=== PATIENT | female | born 1990 | race Caucasian/White ===

== ENCOUNTER 2023-10-23 02:23 | Inpatient (IN) | payer BC, SELFPAY ==
[2023-10-23 02:50] VITALS: BP 138/86; BMI 26.6
[2023-10-23 03:12] LABS: % Basophils 0.2 % (0-2); % Eosinophils 0.2 % (0-6); % Immature Granulocytes 1.8 % (0-0.5); % Lymphocytes 8.7 % (20.5-51.1); % Monocytes 7.2 % (1.7-9.3); % Neutrophils 81.9 % (42.2-75.2); Absolute Immature Granulocytes 0.2 10^3/uL (0-0.05); Absolute Lymphocytes 1.2 10^3/uL (1.2-3.4); Absolute Neutrophils 10.8 10^3/uL (1.4-6.5); Hematocrit 34.2 % (37.0-47.0); Hemoglobin 12.3 g/dL (12.0-16.0); Mean Corpuscular Hgb 31.1 pg (27.0-31.0); Mean Corpuscular Volume 86.6 fL (81.0-99.0); Mean Platelet Volume 10.5 fL (7.4-10.4); Nucleated Red Blood Cells % 0 %; Platelet Count 189 10^3/uL (130-400); Red Blood Cell Count 3.95 10^6/uL (4.20-5.40); Red Cell Dist. Width 12.9 % (11.5-14.5); White Blood Cell Count 13.2 10^3/uL (4.8-10.8)
[2023-10-23] MEDS: LR 1000 IV ×2 (07:40→09:03)
[2023-10-23] MEDS: FENTANYL/BUPIVACAINE 100 EPIDURAL (09:15)
[2023-10-23] MEDS: SUBLIMAZE 100 MCG EPIDURAL (09:15)
[2023-10-23] MEDS: PITOCIN 30 UNITS/NSS 500 ML IV ×2 (10:00→13:30)
[2023-10-23] MEDS: MOTRIN 600 MG PO ×2 (14:29→23:34)
[2023-10-23] MEDS: TYLENOL 650 MG PO (23:36)
[2023-10-24 04:29] LABS: Hematocrit 26.1 % (37.0-47.0); Hemoglobin 9.3 g/dL (12.0-16.0)
[2023-10-24] MEDS: PRENATAL PLUS 1 TABLET PO (08:10)
[2023-10-24] MEDS: TYLENOL 650 MG PO ×3 (08:10→22:34)
[2023-10-24] MEDS: MOTRIN 600 MG PO ×3 (08:11→22:34)
[2023-10-24] MEDS: SENOKOT-S 1 TABLET PO (08:11)
[2023-10-25] MEDS: MOTRIN 600 MG PO (08:33)
[2023-10-25] MEDS: SENOKOT-S 1 TABLET PO (08:33)
[2023-10-25] MEDS: PRENATAL PLUS 1 TABLET PO (08:33)
[2023-10-25] MEDS: FEOSOL 325 MG PO (08:33)
[2023-10-25] MEDS: TYLENOL 650 MG PO (08:34)
[2023-10-26 12:39] LABS: Syphilis/T. pallidum Ab Reflex Negative (Negative)
== END 2023-10-25 12:56 | disposition home or self-care (01) | DRG 807 ==
LOC: LDRP 02:23
PROVIDERS: Obstetrics & Gynecology; ADMITTING PHYSICIAN Obstetrics & Gynecology
PROC: 0KQM0ZZ Repair Perineum Muscle, Open Approach (ICD-10-PCS; 2023-10-23)
PROC: 10907ZC Drainage of Amniotic Fluid, Therapeutic from Products of Conception, Via Natural or Artificial Opening (ICD-10-PCS; 2023-10-23)
PROC: 10E0XZZ Delivery of Products of Conception, External Approach (ICD-10-PCS; 2023-10-23)
PROC: 0UQMXZZ Repair Vulva, External Approach (ICD-10-PCS; 2023-10-23)
DX: O76 Abnormality in fetal heart rate and rhythm complicating labor and delivery (principal); Z37.0 Single live birth; Z3A.39 39 weeks gestation of pregnancy; O70.1 Second degree perineal laceration during delivery; O69.3XX0 Labor and delivery complicated by short cord, not applicable or unspecified; O43.123 Velamentous insertion of umbilical cord, third trimester; O90.81 Anemia of the puerperium; D64.9 Anemia, unspecified; Z88.0 Allergy status to penicillin
CPT/HCPCS: 88307; 85014; 85018; 85025; 86780; 86850; 86900; 86901

== ENCOUNTER → 2025-03-05 07:30 | Outpatient (REF) | payer BC, SELFPAY | LOC: HWRAD 07:30 | PROVIDERS: ATTENDING PHYSICIAN Nurse Practitioner Adult Health | DX: E05.90 Thyrotoxicosis, unspecified without thyrotoxic crisis or storm (principal); E01.0 Iodine-deficiency related diffuse (endemic) goiter | CPT/HCPCS: 76536 ==